=== PATIENT | female | born 1975 | race Hispanic/Latino ===

== ENCOUNTER 2018-08-04 16:29 | Emergency (ER) | payer MEDICAID, OTHER ==
[2018-08-04] MEDS ORDERED: ACETAMINOPHEN EXTRA STRENGTH 500 MG TABLET ONE (17:32)
[2018-08-04 18:23] LABS: APPEARANCE,URINE CLOUDY (CLEAR); BILIRUBIN,URINE NEGATIVE (NEGATIVE); COLOR,URINE YELLOW (YELLOW); GLUCOSE, URINE (UA) NEGATIVE (NEGATIVE); KETONES,URINE NEGATIVE (NEGATIVE); LEUKOCYTE ESTERASE ,URINE TRACE (NEGATIVE); NITRATE,URINE POSITIVE (NEGATIVE); OCCULT BLOOD,URINE NEGATIVE (NEGATIVE); PROTEIN,URINE NEGATIVE (NEGATIVE); UROBILINOGEN,URINE 0.2 mg/dL (0.2-1.0)
[2018-08-04 18:31] LABS: BACTERIA,URINE Moderate /HPF (None Seen); RBC,URINE 0-1 /HPF (0-1)
[2018-08-04 18:32] LABS: MUCUS,URINE Few LPF (None Seen); SQUAMOUS EPITHELIAL CELL,UR Moderate /HPF (0-2)
== END 2018-08-04 18:54 | disposition home or self-care (01) ==
LOC: EDH 16:29
DX: O23.11 Infections of bladder in pregnancy, first trimester (principal); M54.30 Sciatica, unspecified side; G43.909 Migraine, unspecified, not intractable, without status migrainosus; Z3A.01 Less than 8 weeks gestation of pregnancy
CPT/HCPCS: 81001; 81025

== ENCOUNTER 2019-03-09 10:03 | Inpatient (IN) | payer OTHER ==
[~2019-03-09] VITALS: Ht 162.6 cm; Wt 112.5 kg
[2019-03-09 10:56] LABS: BASOPHILS % (AUTO) 0.2 % (0.0-5.0); EOSINOPHILS % (AUTO) 0.3 % (0.0-8.0); HEMATOCRIT 37.7 % (36-48); LYMPHOCYTES % (AUTO) 20.3 % (21.0-51.0); MEAN CORPUSCULAR HGB CONC 34.6 g/dL (32.0-36.0); MEAN CORPUSCULAR VOLUME 89.6 fL (79-99); MONOCYTES % (AUTO) 4.7 % (3.0-13.0); NEUTROPHILS % (AUTO) 74.5 % (40.0-77.0); NUCLEATED RED BLOOD CELLS 0.1 % (0.0-0.19); PLATELET COUNT (AUTO) 206 K/uL (130-400); RED BLOOD CELL COUNT(AUTO) 4.21 MIL/uL (4.00-5.50); RED CELL DISTRIBUTION WIDTH 13.1 % (11.0-15.5); WHITE BLOOD COUNT (AUTO) 9.1 K/uL (4.8-10.8)
[2019-03-09 10:57] LABS: APPEARANCE,URINE Clear (CLEAR); BILIRUBIN,URINE Negative (NEGATIVE); COLOR,URINE Yellow (YELLOW); GLUCOSE, URINE (UA) Negative (NEGATIVE); KETONES,URINE Negative (NEGATIVE); LEUKOCYTE ESTERASE ,URINE Moderate (NEGATIVE); NITRATE,URINE Negative (NEGATIVE); OCCULT BLOOD,URINE Negative (NEGATIVE); PH,URINE 6.5 (5.0-8.0); PROTEIN,URINE Negative (NEGATIVE); UROBILINOGEN,URINE 0.2 mg/dL (0.2-1.0)
[2019-03-09 11:09] LABS: CREATININE 0.9 mg/dL (0.5-1.5); POTASSIUM 4.1 mmol/L (3.5-5.1)
[2019-03-09 11:15] LABS: ALBUMIN 2.7 g/dL (3.5-5.0); BILIRUBIN,TOTAL 0.2 mg/dL (0.2-1.0); TOTAL PROTEIN, SERUM 7.3 g/dL (6.0-8.3); URIC ACID 6.1 mg/dL (2.6-7.2)
[2019-03-09 11:31] LABS: INR 0.92 (0.85-1.15); PARTIAL THROMBOPLASTIN TIME 28.2 SEC (26.3-35.5); PROTHROMBIN TIME 9.7 SEC (9.6-11.6)
[2019-03-09 11:35] LABS: BACTERIA,URINE Rare /HPF (None Seen); RBC,URINE 0-1 /HPF (0-1); SQUAMOUS EPITHELIAL CELL,UR Rare /HPF (0-2)
[2019-03-09] MEDS: LACTATED RINGERS 1000ML 1,000 ML IV PRN ×2 (12:20→19:22)
[2019-03-09] MEDS: DINOPROSTONE 10 MG VAGINAL SUPP VG SCH (13:00)
[2019-03-09] MEDS ORDERED: BUTORPHANOL TARTRATE 2 MG/ML ONE (19:56)
[2019-03-09] MEDS ORDERED: BUTORPHANOL TARTRATE 2 MG/ML IVP ONE (20:00)
[2019-03-09] MEDS ORDERED: OXYTOCIN-LR 20 UNITS/1000 ML 1,000 ML IV ONE (21:48)
[2019-03-09] MEDS ORDERED: LIDOCAINE HCL 1% 20 ML VIAL ONE (21:48)
[2019-03-09] MEDS ORDERED: MISOPROSTOL 200 MCG TABLET ONE (23:25)
[2019-03-09] MEDS ORDERED: PROPOFOL 10 MG/ML 20ML VIAL IV ONE (23:32)
[2019-03-09] MEDS ORDERED: MIDAZOLAM HCL 1 MG/ML 2ML VIAL ONE (23:32)
[2019-03-09] MEDS ORDERED: PHENYLEPHRINE HCL 10 MG/ML 1ML VIAL IV ONE (23:37)
[2019-03-09] MEDS ORDERED: ALBUMIN (HUMAN) 5% 500 ML IV ONE (23:40)
[2019-03-09] MEDS ORDERED: CEFAZOLIN SODIUM 1 GM VIAL ONE (23:43)
[2019-03-09] MEDS ORDERED: MISOPROSTOL 200 MCG TABLET PR ONE (23:59)
[2019-03-10] VITALS (19 sets, daily range): BP systolic 109–148; BP diastolic 62–87
[2019-03-10] MEDS ORDERED: FENTANYL CITRATE PF 50 MCG/1 ML 2ML VIAL ONE (00:13)
[2019-03-10 00:19] LABS: HEMATOCRIT 27.6 % (36-48)
[2019-03-10] MEDS ORDERED: OXYTOCIN-LR 20 UNITS/1000 ML 1,000 ML IV ONE (00:24)
[2019-03-10] MEDS ORDERED: ACETAMINOPHEN-CODEINE 300/30MG TAB PO PRN (01:00)
[2019-03-10] MEDS ORDERED: PROMETHAZINE HCL 25 MG/ML 1ML AMPULE IM PRN ×3 (01:00→10:45)
[2019-03-10] MEDS ORDERED: OXYTOCIN-LR 20 UNITS/1000 ML 1,000 ML IV PRN (01:00)
[2019-03-10] MEDS ORDERED: DOCUSATE SODIUM 100 MG CAP PO PRN (01:00)
[2019-03-10] MEDS ORDERED: SIMETHICONE 80 MG TAB.CHEW PO PRN ×2 (01:00→10:45)
[2019-03-10] MEDS ORDERED: DEXTROSE 5 %-0.45 % NACL 1,000 ML IV PRN (01:00)
[2019-03-10] MEDS ORDERED: SODIUM CHLORIDE 0.9% 10 ML VIAL IVP PRN (01:00)
[2019-03-10] MEDS ORDERED: BISACODYL 10 MG SUPP.RECT RC PRN ×2 (01:00→10:45)
[2019-03-10] MEDS ORDERED: MEPERIDINE-PF 75 MG/ML SYG IM PRN ×2 (01:00→10:45)
[2019-03-10] MEDS ORDERED: IBUPROFEN 600 MG TABLET PO PRN ×2 (01:00→10:45)
[2019-03-10] MEDS ORDERED: MEPERIDINE-PF 50 MG/ML SYG ONE (02:24)
[2019-03-10] MEDS ORDERED: MEPERIDINE-PF 25 MG/ML SYG ONE (02:24)
[2019-03-10] MEDS ORDERED: OXYTOCIN 10 USP UNITS/ML 20 UNIT in LACTATED RINGERS 1000ML 1,000 ML IV SCH (03:00)
[2019-03-10 04:23] LABS: BASOPHILS % (AUTO) 0.1 % (0.0-5.0); HEMATOCRIT 30.8 % (36-48); LYMPHOCYTES % (AUTO) 3.7 % (21.0-51.0); MEAN CORPUSCULAR HEMOGLOBIN 29.5 pg (27.0-33.0); MEAN CORPUSCULAR HGB CONC 33.4 g/dL (32.0-36.0); MEAN CORPUSCULAR VOLUME 88.5 fL (79-99); MONOCYTES % (AUTO) 4.3 % (3.0-13.0); NEUTROPHILS % (AUTO) 91.9 % (40.0-77.0); PLATELET COUNT (AUTO) 189 K/uL (130-400); RED BLOOD CELL COUNT(AUTO) 3.48 MIL/uL (4.00-5.50); RED CELL DISTRIBUTION WIDTH 13.3 % (11.0-15.5)
[2019-03-10] MEDS: LACTATED RINGERS 1000ML 1,000 ML IV PRN (06:28)
[2019-03-10 07:14] LABS: HEPATITIS Bs ANTIGEN SCREEN P Negative (Negative)
[2019-03-10] MEDS: CEFAZOLIN SODIUM 1 GM VIAL IVP SCH ×2 (10:24→18:28)
[2019-03-10] MEDS ORDERED: SODIUM CHLORIDE 0.9% 1000ML 1,000 ML IV SCH (10:39)
[2019-03-10] MEDS: DINOPROSTONE 10 MG VAGINAL SUPP VG SCH (13:00)
[2019-03-10] MEDS: ACETAMINOPHEN-CODEINE 300/30MG TAB PO PRN (13:40)
[2019-03-10] MEDS ORDERED: FLU VACC QS2019-20 36MOS UP/PF 60 MCG/0.5 ML ML IM ONE (17:15)
[2019-03-10] MEDS ORDERED: DIPH,PERTUSS(ACELL),TET VAC/PF 0.5 ML VIAL IM ONE (17:15)
[2019-03-10] MEDS ORDERED: LEVO100T12 PO (18:36)
[2019-03-10] MEDS ORDERED: GLYB2.5 PO (18:36)
[2019-03-10] MEDS: DOCUSATE SODIUM 100 MG CAP PO PRN (20:47)
[2019-03-11] MEDS: CEFAZOLIN SODIUM 1 GM VIAL IVP SCH (02:46)
[2019-03-11 04:22] VITALS: BP 122/71
[2019-03-11 06:05] LABS: HEMATOCRIT 26.1 % (36-48); MEAN CORPUSCULAR HEMOGLOBIN 29.2 pg (27.0-33.0); MEAN CORPUSCULAR HGB CONC 32.7 g/dL (32.0-36.0); MEAN CORPUSCULAR VOLUME 89.4 fL (79-99); PLATELET COUNT (AUTO) 190 K/uL (130-400); RED BLOOD CELL COUNT(AUTO) 2.92 MIL/uL (4.00-5.50); RED CELL DISTRIBUTION WIDTH 13.8 % (11.0-15.5); WHITE BLOOD COUNT (AUTO) 14.2 K/uL (4.8-10.8)
[2019-03-11 07:26] VITALS: BP 153/84
[2019-03-11] MEDS: DOCUSATE SODIUM 100 MG CAP PO PRN (08:33)
[2019-03-11] MEDS: ACETAMINOPHEN-CODEINE 300/30MG TAB PO PRN (08:38)
[2019-03-11] MEDS ORDERED: IBUPROFEN 800 MG TAB PO SCH (10:45)
[2019-03-11 11:09] VITALS: BP 151/89
[2019-03-11] MEDS ORDERED: ACET1TAB12 PO (11:21)
[2019-03-11] MEDS ORDERED: ACETAMINOPHEN-CODEINE 300/30MG TAB PO PRN (15:45)
[2019-03-11 16:21] VITALS: BP 143/85
== END 2019-03-11 19:10 | disposition home or self-care (01) | DRG 768 ==
LOC: OBSVTOIN 10:03 → LDH 10:03 → WSH 03-10 01:45
PROVIDERS: ADMIT Obstetrics & Gynecology; ATTEND Obstetrics & Gynecology
PROC: 0US90ZZ Reposition Uterus, Open Approach (ICD-10-PCS; 2019-03-09)
PROC: 0KQM0ZZ Repair Perineum Muscle, Open Approach (ICD-10-PCS; 2019-03-09)
PROC: 30233N1 Transfusion of Nonautologous Red Blood Cells into Peripheral Vein, Percutaneous Approach (ICD-10-PCS; 2019-03-09)
PROC: 3E0P7VZ Introduction of Hormone into Female Reproductive, Via Natural or Artificial Opening (ICD-10-PCS; 2019-03-09)
PROC: 10907ZC Drainage of Amniotic Fluid, Therapeutic from Products of Conception, Via Natural or Artificial Opening (ICD-10-PCS; 2019-03-09)
PROC: 10E0XZZ Delivery of Products of Conception, External Approach (ICD-10-PCS; principal; 2019-03-09 23:30)
PROC: 3E02340 Introduction of Influenza Vaccine into Muscle, Percutaneous Approach (ICD-10-PCS; 2019-03-10)
PROC: 3E0234Z Introduction of Serum, Toxoid and Vaccine into Muscle, Percutaneous Approach (ICD-10-PCS; 2019-03-10)
DX: O41.03X0 Oligohydramnios, third trimester, not applicable or unspecified (principal); Z37.0 Single live birth; O72.1 Other immediate postpartum hemorrhage; O71.2 Postpartum inversion of uterus; O10.92 Unspecified pre-existing hypertension complicating childbirth; O70.1 Second degree perineal laceration during delivery; Z23 Encounter for immunization; Z3A.38 38 weeks gestation of pregnancy; O24.425 Gestational diabetes mellitus in childbirth, controlled by oral hypoglycemic drugs; O99.284 Endocrine, nutritional and metabolic diseases complicating childbirth; E03.9 Hypothyroidism, unspecified
CPT/HCPCS: 36415; 80053; 81001; 84550; 85014; 85018; 85025; 85027; 85384; 85610; 85730; 86592; 86850; 86900; 86901; 86922; 87340; A4344; G0008; G0378; J0595; J0690; J2175; J2250; J2370; J2550; J2590; J2704; J3010; J7030; J7120; P9016; P9045; Q2035